=== PATIENT | female | born 1955 | race Caucasian/White ===

== ENCOUNTER → 2021-06-26 | Outpatient (CLI) | payer MEDICARE | LOC: KOH-I 14:05 | DX: M51.16 Intervertebral disc disorders with radiculopathy, lumbar region (principal); M47.26 Other spondylosis with radiculopathy, lumbar region | CPT/HCPCS: 72100 ==

== ENCOUNTER → 2021-07-07 | Outpatient (CLI) | payer MEDICARE | LOC: KOH-I 07-06 11:15 | DX: M51.16 Intervertebral disc disorders with radiculopathy, lumbar region (principal); M48.061 Spinal stenosis, lumbar region without neurogenic claudication; M48.07 Spinal stenosis, lumbosacral region; M51.27 Other intervertebral disc displacement, lumbosacral region | CPT/HCPCS: 72148 ==

== ENCOUNTER → 2022-04-06 | Outpatient (CLI) | payer MEDICARE ==
[~2022-04-06] VITALS: Ht 157.5 cm; Wt 108.9 kg
== END ==
LOC: EROP 15:38
DX: U07.1 COVID-19 (principal); Z23 Encounter for immunization
CPT/HCPCS: M0222; Q0222

== ENCOUNTER 2022-05-15 17:20 | Emergency (ER) | payer MEDICARE ==
[2022-05-15] MEDS ORDERED: PROVENTIL HFA6.7 GM INH (20:10)
== END 2022-05-15 21:00 | disposition home or self-care (01) ==
LOC: ER1 17:20
DX: R06.00 Dyspnea, unspecified (principal); E11.9 Type 2 diabetes mellitus without complications; I10 Essential (primary) hypertension; Z86.16 Personal history of COVID-19
CPT/HCPCS: 82550; 82553; 83880; 84484; 93005; 94640; 94664; 99285; Q9967

== ENCOUNTER → 2022-05-15 | Outpatient (CLI) | payer MEDICARE ==
[~2022-05-15] MED LIST: PROVENTIL HFA6.7 GM INH
[2022-05-15 13:21] LABS: HEMOGLOBIN 14.4 gm/dl (12.3-15.3); RED BLOOD COUNT 4.78 M/UL (4.00-5.10); WHITE BLOOD COUNT 6.9 K/UL (4.5-11.0)
== END ==
LOC: LAB 12:49
PROVIDERS: Nurse Practitioner Family
DX: U07.1 COVID-19 (principal); R00.0 Tachycardia, unspecified; R06.02 Shortness of breath; J98.09 Other diseases of bronchus, not elsewhere classified
CPT/HCPCS: 36415; 71046; 80048; 85025; 85379

== ENCOUNTER → 2022-07-12 | Outpatient (CLI) | payer MEDICARE | LOC: KOH-I 14:52 | DX: R06.09 Other forms of dyspnea (principal) | CPT/HCPCS: 71046 ==

== ENCOUNTER → 2022-07-13 | Outpatient (CLI) | payer MEDICARE | LOC: HEART 5 09:37 | DX: R05.9 Cough, unspecified (principal); R06.09 Other forms of dyspnea; R06.02 Shortness of breath | CPT/HCPCS: 94010 ==